=== PATIENT | female | born 1955 | race African-American/Black ===

== ENCOUNTER 2025-10-06 10:29 | Outpatient (REF) | payer MEDICAID, SELFPAY ==
--- OUTSIDE RECORDS SUMMARY | 2025-10-06 09:15 | XMS_ITS | Encounter Summary ---
Author Organization [employer] [facility] Address [address] [place] [address] [address] [address] Care Team Providers Care Management Supervisor Name Role Phone Bhanu Reeder Primary Care Provider [phone] Reason for Referral * Imaging (Routine) - Authorized Specialty Diagnoses / Procedures Referred By Russel garcia Referred To Contact Radiology Diagnoses Cancer screening Procedures BI Mammogram Screening Tomosynthesis Bilateral Bhanu Reeder FNP [address] [place] [address] Phone: tel: fax: [address] [address] Phone: tel: fax: Referral ID Status Reason Start Date Expiration Date V isits Requested Visits Authorized [id number] Authorized 10/06/2025 10/06/2026 1 1 * Endoscopy (Routine) - Pending Review Specialty Diagnoses / Procedures Referred By Russel t Referred To Contact Diagnoses Cancer screening Procedures Colonoscopy Screening Bhanu Reeder FNP [address] [place] [address] Phone: tel: fax: Referral ID Status Reason Start Date Expiration Date V isits Requested Visits Authorized [id number] Pending Review 10/06/2025 10/06/2026 1 1 * Consultation (Routine) - Authorized Specialty Diagnoses / Procedures Referred By Russel t Referred To Contact Dental Lute Packer Or Applier / Dentistry Diagnoses Encounter for medical examination to establish care Bhanu Reeder FNP [address] [place] [address] Phone: tel: fax: Referral ID Status Reason Start Date Expiration Date Visits Requested Visits Authorized [id number] Authorized Consult and Treat 10/06/2025 10/06/2026 1 1 * Consultation (Routine) - Pending Review Specialty Diagnoses / Procedures Referred By Russel garcia Referred To Contact Optometry Diagnoses Primary hypertension Bhanu Reeder FNP [address] [place] [address] Phone: tel: fax: Referral ID Status Reason Start Date Expiration Date Visits Requested Visits Authorized [id number] Pending Review Specialty Services Required 10/06/2026 1 1 Encounter Details Date Type Department Care Team (Late st Contact Info) Description 10/06/2025 9:15 AM EST Office Visit [facility] MEDICINE [address] [place] [address] Bhanu Reeder FNP [address] [place] [address] Encounter for medical examination to establish care (Primary Dx); Muscular pain; Gastroesophageal reflux disease without esophagitis; Primary hypertension; Encounter for screening examination for sexually transmitted disease; Cancer screening Social History Tobacco Use Types Packs/Day Years Used Date Smoking Tobacco: Never Passive Smoke Exposure: Never Smokeless Tobacco: Never Tobacco Cessation:Counseling Given: Not Answered Alcohol Answer Date Recorded How often do you have a drink containing alcohol ? 0 10/06/2025 How many drinks containing a lcohol do you have on a typical day when you are drinking? 0 10/06/2025 How often do you have six or more drinks on one occasion? 0 10/06/2025 Depression Answer Date Recorded Patient Health Questionnaire-9 Score 1 10/06/2025 Patient Health Questionnaire-9 Score 1 10/06/2025 Last PHQ-9: Questionnaire Data Not on file 1 12/06/2024 Housing Stability Answer Date Recorded What is your housing situation today? I have jennifer sing 10/06/[address] you li ve. Do you have problems with any of the following? None of the above 10/06/2025 Food Insecurity Answer Date Recorded Within the past 12 months, y ou worried that your food would run out before you got money to buy more: Sometimes True 2024 Within the past 12 months,th e food you bought just didn't last and you didn't have enough money to get more: Never True 10/06/2025 Transportation Answer Date Recorded In the past 12 months, has l ack of transportation kept you from medical appts, meetings, work or from getting things needed for daily living? No 10/06/2025 Utilities Answer Date Recorded In the past 12 months, has t he electric, gas, oil or water company threatened to shut off services in your home? No 10/06/2025 Depression Answer Date Recorded Patient Health Questionnaire-2 Score 0 10/06/2025 Internet Access Answer Date Recorded Internet Access Q1 No 10/06/2025 Internet Access Q2 I do not want or need it 09/12 Comments Unknown Sex and Gender Information Value Date Recorded Sex Assigned at Female 09/23/2025 9:45 AM EST Legal Sex Female 11:41 AM EDT Gender Identity Female 09/23/2025 9:45 AM EST Sexual Orientation Straight 09/23/2025 9: 45 AM EST documented as of this encounter Last Filed Vital Signs Vital Sign Reading Time Taken Comments Blood Pressure 160/92 10/06/2025 9:32 AM EST Pulse 96 10/06/2025 9:32 AM EST Temperature 36.4 C (97.6 F) 10/06/2025 9:32 AM EST Respiratory Rate 25 10/06/2025 9:32 AM EST Oxygen Saturation 98% 10/06/2025 9:32 AM EST Inhaled Oxygen Concentration - - Weight 88.5 kg (195 lb 3.2 oz) 10/06/2025 9:32 A M EST Height 173 cm (5' 8.11 ) 10/06/2025 9:32 AM EST Body Mass Index 29.58 10/06/2025 9:32 AM EST documented in this encounter Functional Status * Over the past 2 weeks, how often have you been bothered by any of the following problems? Question Answer Date of Assessment Author Patient Health Questionnaire -2 Score 0 10/06/2025 10:40 AM Samara Lucero MA * Little interest or pleasure in doing things Answer Date of Assessment Author Not at all 10/06/2025 10:40 AM Samara Lucero MA * Feeling down, depressed, or hopeless Answer Date of Assessment Author Not at all 10/06/2025 10:40 AM Samara Lucero MA * Trouble falling or staying asleep, or sleeping too much Answer Date of Assessment Author Several days 10/06/2025 10:40 AM Samara Lucero MA * Feeling tired or having little energy Answer Date of Assessment Author Not at all 10/06/2025 10:40 AM Samara Lucero MA * Poor appetite or overeating Answer Date of Assessment Author Not at all 10/06/2025 10:40 AM Samara Lucero MA * Feeling bad about yourself - or that you are a failure or have let yourself or your family down Answer Date of Assessment Author Not at all 10/06/2025 10:40 AM Samara Lucero MA * Trouble concentrating on things, such as reading the newspaper or watching television Answer Date of Assessment Author Not at all 10/06/2025 10:40 AM Samara Lucero MA * Moving or speaking so slowly that other people could have noticed? Or the opposite - being so fidgety or restless that you have been moving around a lot more than usual. Answer Date of Assessment Author Not at all 10/06/2025 10:40 AM Samara Lucero MA * Thoughts that you would be better off or hurting yourself in some way Answer Date of Assessment Author Not at all 10/06/2025 10:40 AM Samara Lucero MA * Patient Health Questionnaire-9 Score Answer Date of Assessment Author 1 10/06/2025 10:40 AM Samara Lucero MA * Over the last 2 weeks, how often have you been bothered by any of the following problems? Question Answer Date of Assessment Author Feeling nervous, anxious, or on edge 0 10/06/2025 10:40 AM Samara Lucero MA Not being able to stop or co ntrol worrying 1 10/06/2025 10:40 AM Samara Lucero MA Worrying too much about diff erent things 0 10/06/2025 10:40 AM Samara Lucero MA Trouble relaxing 0 10/06/2025 10:40 AM Samara Lucero MA Being so restless that it is hard to sit still 0 10/06/2025 10:40 AM Samara Lucero MA Becoming easily annoyed or irritable 0 10/06/2025 10:40 AM Samara Lucero MA Feeling afraid as if somethi ng awful might happen 1 10/06/2025 10:40 AM Samara Lucero MA FELICE-7 Total Score 2 10/06/2025 10:40 AM Samara Lucero MA * How difficult have these problems made it for you to do your work, take care of things at home, or get along with other people? Answer Date of Assessment Author Not difficult at all 10/06/2025 10:40 AM Samara Gomez MA documented as of this encounter Miscellaneous Notes * Assessment & Plan Note - KEN Snider - 10/06/2025 9:15 AM EST Associated Problem(s): Gastroesophageal reflux disease without esophagitis Recommended waiting to lie down for at least 30 minutes after meals. Will address this at next visit. * Assessment & Plan Note - KEN Snider - 10/06/2025 9:15 AM EST Associated Problem(s): Primary hypertension Prescribed Norvasc 5 mg 1 x day and BP kit. Orders: Referral to Optometry; Future documented in this encounter Plan of Treatment Upcoming Encounters Date Type Department Care Team (Late st Contact Info) Description 10/20/2025 9:45 AM EST Office Visit [facility] MEDICINE [address] [place] [address] Bhanu Reeder FNP [address] [place] [address] Scheduled Orders Name Type Priority Associated Diagnoses Orde r Schedule CBC auto differential Lab Routine Encounter for medical examination to establish care Expected: 10/06/2025 (Approximate), Expires: 10/06/2026 Comprehensive Metabolic Panel Lab Routine Encounter for medical examination to establish care Expected: 10/06/2025 (Approximate), Expires: 10/06/2026 Lipid Panel, Standard Lab Routine Encounter for medical examination to establish care Expected: 10/06/2025 (Approximate), Expires: 10/06/2026 HIV-1/2 Antigen and Antibodies, Fourth Generation, with Reflexes Lab Routine Encounter for screening examination for sexually transmitted disease Expected: 10/06/2025 (Approximate), Expires: 10/06/2026 Syphilis Screen Lab Routine Encounter for screening examination for sexually transmitted disease Expected: 10/06/2025, Expires: 10/06/2026 Colonoscopy Screening Endoscopy Routine Cancer screening Expected: 10/06/2025, Expires: 04/05/2026 BI Mammogram Screening Tomosynthesis Bilateral Imaging Routine Cancer screening Expected: 10/06/2025, Expires: 12/06/2026 Scheduled Referrals Name Type Priority Associated Diagnoses Orde r Schedule Referral to Optometry Outpatient Referral Routine Primary hypertension Expected: 10/06/2025 (Approximate), Expires: 10/06/2026 Referral to [facility] Dental Adult Outpatient Referral Routine Encounter for medical examination to establish care Expected: 10/06/2025 (Approximate), Expires: 10/06/2026 documented as of this encounter Procedures Procedure Name Priority Date/Time Associated Diagnosis Comments POCT GLYCATED HEMOGLOBIN, TOTAL Routine 10/06/2025 10:32 AM EST Encounter for medical examination to establish care POCT GLUCOSE Routine 10/06/2025 10:31 AM EST Encounter for medical examination to establish care documented in this encounter Results * (ABNORMAL) POCT Hgb A1c (10/06/2025 10:32 AM EST) Hemoglobin A1C 6.1(A) 4.0 - 5.7 % QC Media Lot # [id number] Lot# Expiration Date [id number] Blood 10/06/2025 10:3 2 AM EST us Bhanu ROGERS POINT OF CARE TEST ENTER/EDIT ORDERABLES Final Result * POCT Glucose (10/06/2025 10:31 AM EST) Glucose Blood, POC 114 60 - 200 mg/dL Comment:random QC Media Lot # [id number] Lot# Expiration Date [id number] Blood Capillary blood specimen / Unknown 10/06/2025 10:31 AM EST Bhanu ROGERS POINT OF CARE TEST ENTER/EDIT ORDERABLES Final Result documented in this encounter Visit Diagnoses Diagnosis Encounter for medical examination to establish care- Primary Muscular pain Unspecified myalgia and myositis Gastroesophageal reflux disease without esophagitis Esophageal reflux Primary hypertension Unspecified essential hypertension Encounter for screening examination for sexually transmitted disease Cancer screening Screening for unspecified malignant neoplasm documented in this encounter Additional Health Concerns Assessment Noted Time PHQ-9 Depression Total Score: 1 10/06/20 10:40 AM EST documented as of this encounter Care Teams Management Supervisor Relationship Specialty Start Date End Date Bhanu Reeder FNP [address] [place] [address] PCP - General Family Medicine 10/06/25 documented as of this encounter
--- OUTSIDE RECORDS SUMMARY | 2025-10-06 12:37 | XMS_ITS | Clinical Summary ---
Author Organization [employer] Address [address] [facility] [address] [place] [address] Care Team Providers Care Hand Molder Meat Name Role Phone Bhanu Reeder GROUND SERVICES INSTRUCTOR Primary Care Provider [phone] Allergies No known active allergies Medications naproxen (Naprosyn) 500 MG tablet Take 1 tablet (500 mg) by mouth 2 times daily. 60 tablet 10/06/20 25 025 Active Diclofenac Sodium 1 % gel Use thin layer on areas of pain, 2 x / day. Wash hands after applicatio n. 120 g 1 10/06/20 25 Active amLODIPine (Norvasc) 5 MG tablet Take 1 tablet (5 mg) by mouth Once per day. 30 tablet 11 10/06/20 25 026 Active Blood Pressure kitIndications:P rimary hypertension 1 each Once per day. 1 kit 10/06/20 25 Active Blood Pressure kit 1 each Once per day. 1 kit 10/06/20 25 025 Discontinued(Du plicate order (will not trigger notification to Pharmacy)) Active Problems Problem Noted Date Diagnosed Date Gastroesophageal reflux disease without esophagi tis 08/25/2023 Assessment & Plan (10/06/2025 10:33 AM EST): Recommended waiting to lie down for at least 30 minutes after meals. Will address this at next visit. Primary hypertension 08/25/2023 Assessment & Plan (10/06/2025 10:33 AM EST): Prescribed Norvasc 5 mg 1 x day and BP kit. Orders: Referral to Optometry; Future Encounters Date Type Department Care Team Description 10/06/2025 9:15 AM EST Office Visit [facility] MEDICINE [address] [place] [address] Bhanu Reeder FNP Encounter for medical examination to establish care (Primary Dx); Muscular pain; Gastroesophageal reflux disease without esophagitis; Primary hypertension; Encounter for screening examination for sexually transmitted disease; Cancer screening 10/06/2025 Travel 10/05/2025 Telephone [facility] MEDICINE [address] [place], [place] [phone] Bhanu Reeder FNP Chart Prep from Last 3 Months Social History Tobacco Use Types Packs/Day Years [...] your housing situation today? I have jennifer roth 10/06/[address] you li [...] Orientation Straight 09/23/2025 9: 45 AM EST Last Filed Vital Signs Vital Sign Reading [...] Mass Index 29.58 10/06/2025 9:32 AM EST Plan of Treatment Upcoming Encounters Date Type Department Care Team (Late st Contact Info) Description 10/20/2025 9:45 AM EST Office Visit [facility] MEDICINE [address] [place] [address] Bhanu Reeder FNP [address] [place] [address] Health Maintenance Due Date Last Done Comments CT Colonography 1953 Colonoscopy 1953 FIT DNA/Cologuard 1953 FOBT 1953 Lipid Panel 1953 Sigmoidoscopy 1953 Hepatitis C Screening 1971 DTaP/Tdap/Td Vaccines (1 - Tdap) 1972 Mammogram 1993 Pneumococcal Vaccine: 50+ Years (1 of 1 - PCV) 2003 Zoster Vaccines (1 of 2) 2003 Colorectal Cancer Screening 08/26/2024 FIT 08/26/2024 08/26/2023 COVID-19 Vaccine (1 - 2024-2 6 season) 2025 Influenza Vaccine (#1) 2025 Alcohol/Substance Use Screening 10/06/2026 10/06/2025 Depression Screening 10/06/2026 10/06/2025, 10/06/2025 Diabetes: Hemoglobin A1C 10/06/2026 10/06/2025 SDOH Screening 10/06/2026 10/06/2025 Tobacco Screening 10/06/2026 10/06/2025 RSV Patients and Patients Aged 60 years or older (1 - 1-dose 75+ series) 2028 HIB Vaccines Aged Out No longer eligi ble based on patient's age to complete this topic HPV Vaccines Aged Out No longer eligi ble based on patient's age to complete this topic Hepatitis A Vaccines Aged Out No long er eligible based on patient's age to complete this topic Hepatitis B Vaccines Aged Out No long er eligible based on patient's age to complete this topic IPV Vaccines Aged Out No longer eligi ble based on patient's age to complete this topic Meningococcal B Vaccine Aged Out No l onger eligible based on patient's age to complete this topic Meningococcal Vaccine Aged Out No kirk heidi eligible based on patient's age to complete this topic RSV under 20 months Aged Out No longe r eligible based on patient's age to complete this topic Rotavirus Vaccines Aged Out No longer eligible based on patient's age to complete this topic Procedures Procedure Name Priority Date/Time Associated Diagnosis Comments POCT GLYCATED HEMOGLOBIN, TOTAL Routine 10/06/2025 10:32 AM EST Encounter for medical examination to establish care POCT GLUCOSE Routine 10/06/2025 10:31 AM EST Encounter for medical examination to establish care from Last 3 Months Results * (ABNORMAL) POCT Hgb A1c (10/06/2025 10:32 AM EST) Hemoglobin A1C 6.1(A) 4.0 - 5.7 % QC Media Lot # [id number] Lot# Expiration Date [id number] Blood 10/06/2025 10:3 2 AM EST Bhanu Reeder GROUND SERVICES INSTRUCTOR POINT OF CARE TEST ENTER/EDIT ORDERABLES Final Result * POCT Glucose (10/06/2025 10:31 AM EST) Glucose Blood, POC 114 60 - 200 mg/dL Comment:random QC Media Lot # [id number] Lot# Expiration Date [id number] Blood Capillary blood specimen / Unknown 10/06/2025 10:31 AM EST Bhanu ROGERS POINT OF CARE TEST ENTER/EDIT ORDERABLES Final Result from Last 3 Months Insurance [facility] Care Teams Hand Molder Meat Relationship Specialty Start Date End Date Bhanu Reeder FNP [address] [place] [id number] PCP - General Family Medicine 10/06/25
--- OUTSIDE RECORDS SUMMARY | 2025-10-06 12:37 | XMS_ITS | Encounter Summary ---
Author Organization [employer] Address [address] [facility] [address] [place] [address] Care Team Providers Care Coremaker Experimental Name Role Phone Bhanu Reeder KEN Primary Care Provider [phone] Encounter Details Date Type Department Care Team (Latest Contact Info) Description 10/06/2025 Travel Social History Tobacco Use Types Packs/Day Years Used Date Smoking Tobacco: Never Passive Smoke Exposure: Never Smokeless Tobacco: Never Alcohol Answer Date Recorded How often do [...] AM EST documented as of this encounter Functional Status * Over the [...] Gomez MA documented as of this encounter Plan of Treatment Upcoming Encounters Date Type Department Care Team (Late st Contact Info) Description 10/20/2025 9:45 AM EST Office Visit [facility] MEDICINE [address] [place] [address] Bhanu Reeder FNP [address] [place] [address] documented as of this encounter Visit Diagnoses Not on filedocumented in this encounter Additional Health Concerns Assessment Noted Time PHQ-9 Depression Total Score: 1 10/06/20 25 10:40 AM EST documented as of this encounter Care Teams Coremaker Experimental Relationship Specialty Start Date End Date Bhanu Reeder FNP [address] [place] [address] PCP - General Family Medicine 10/06/25 documented as of this encounter
--- OUTSIDE RECORDS SUMMARY | 2025-10-06 12:37 | XMS_ITS | Encounter Summary ---
Author Organization [employer] Address [address] [place] [address] [address] [place] [address] Care Team Providers Care Mobile Solutions Architect Name Role Phone Unavailable Primary Care Provider Unavailabl e Reason for Visit * Reason Onset Date Comments Chart Prep 10/05/2025 Encounter Details Date Type Department Care Team ([facility] st Contact Info) Description 10/05/2025 Telephone [facility] MEDICINE [address] [place], [place] [phone] Bhanu Reeder FNP [address] [place], [place] [phone] Chart Prep Social History Tobacco Use Types Packs/Day Years Used Date Smoking Tobacco: Never Assessed Alcohol Answer Date Recorded How often do [...] AM EST documented as of this encounter Miscellaneous Notes * Telephone Encounter - Samara Gutiérrez MA - 10/05/2025 8:16 AM EST Chart Prep Labs: not applicable Images: not applicable Referrals: not applicable Vaccines due: Covid, Flu, PCV20, and Zoster Screenings: colonoscopy and mammogramAlcohol/Substance Use Screening Overdue care gaps: SBIRT, SDOH, PHQ-9, FELICE-7, Oral health screening, and Tobacco documented in this encounter Plan of Treatment Upcoming Encounters Date Type Department Care Team (Late st Contact Info) Description 10/20/2025 9:45 AM EST Office Visit [facility] MEDICINE [address] [place] [address] Bhanu Reeder FNP [address] [place] [address] documented as of this encounter Visit Diagnoses Not on filedocumented in this encounter
[2025-10-06 13:08] LABS: MANUAL DIFF FLAG NO
[2025-10-06 13:19] LABS: Hematocrit 42.1 % (37.0-47.0); Hemoglobin 13.8 g/dl (12.0-16.0); Imm Gran Abs Auto 0.02 X10*3/uL (0.00-0.03); Imm Gran Pct Auto 0.3 % (0.0-0.4); Lymphocytes Absolute Auto 2.8 X10*3/uL (1.2-4.9); Mean Corpuscular HGB Conc 32.8 g/dl (31.0-35.0); Mean Corpuscular Hemoglobin 26.1 pg (27.0-33.0); Mean Corpuscular Volume 79.6 fL (80.0-98.0); NRBC Abs Auto 0.000 X10*3/uL (0.0-0.012); NRBC Pct Auto 0.0 /100WBC (0.0-0.2); Platelet Count 298 X10*3/uL (160-400); Red Blood Count 5.29 X10*6/uL (4.20-5.50); White Blood Count 6.1 X10*3/uL (4.8-10.8)
[2025-10-06 13:40] LABS: Alanine Aminotransferase 37 U/L (0-31); Albumin Level 4.8 g/dL (3.5-5.0); Alkaline Phosphatase 53 U/L (39-117); Anion Gap 14 (12-20); Aspartate Amino Transferase 36 U/L (5-31); Blood Urea Nitrogen 10 mg/dL (9-16); Calcium 9.7 mg/dL (8.4-10.2); Carbon Dioxide 24 mmol/L (22-29); Chloride 109 mmol/L (96-108); Cholesterol 239 mg/dL (<200); Estimated Glomerular Filt Rate > 60; HDL Cholesterol 35 mg/dL (>40); Potassium 4.0 mmol/L (3.3-5.1); Sodium 143 mmol/L (135-145); Total Protein 8.6 g/dL (6.5-8.0); Triglycerides 226 mg/dL (<150)
[2025-10-07 04:42] LABS: Syphilis Screen Nonreactive (Nonreactive)
[2025-10-07 05:01] LABS: HIV Num 1 0.05 S/CO (0.00-0.99)
== END 2025-10-06 10:30 | disposition home or self-care (01) ==
LOC: HO.HHCL 10:29
DX: Z00.00 Encounter for general adult medical examination without abnormal findings (principal); Z11.3 Encounter for screening for infections with a predominantly sexual mode of transmission; Z11.4 Encounter for screening for human immunodeficiency virus [HIV]
CPT/HCPCS: 36415; 80053; 80061; 85025; 86780; 87389

== ENCOUNTER 2025-10-20 10:49 | Outpatient (REF) | payer MEDICAID, SELFPAY ==
[2025-10-20 23:31] LABS: CT PCR Urine NOT DETECTED (Not Detect.); NG PCR Urine NOT DETECTED (Not Detect.)
== END 2025-10-20 10:50 | disposition home or self-care (01) ==
LOC: HO.HHCL 10:49
DX: Z20.2 Contact with and (suspected) exposure to infections with a predominantly sexual mode of transmission (principal)
CPT/HCPCS: 87491; 87591

== ENCOUNTER 2025-11-03 11:43 | Outpatient (REF) | payer MEDICAID, SELFPAY ==
--- OUTSIDE RECORDS SUMMARY | 2025-11-03 10:15 | XMS_ITS | Encounter Summary ---
Author Organization [employer] Address [address] [place] [address] [facility] [place] [address] Care Team Providers Care Paranormal Investigator Name Role Phone Bhanu Reeder Primary Care Provider [phone] Reason for Referral * Consultation (Routine) - Pending Review Specialty Diagnoses / Procedures Referred By Russel garcia Referred To Contact Physical Therapy Diagnoses Chronic bilateral low back pain without sciatica Bhanu Redeer FNP [address] [place] [address] Phone: tel: fax: Referral ID Status Reason Start Date Expiration Date Visits Requested Visits Authorized [id number] Pending Review Specialty Services Required 11/03/2026 1 1 Reason for Visit * Reason Comments Follow-up Encounter Details Date Type Department Care Team (Late st Contact Info) Description 11/03/2025 10:15 AM EST Office Visit [facility] [address] [place] [address] Bhanu Reeder FNP [address] [place] [address] Muscular pain (Primary Dx); Other constipation; Chronic bilateral low back pain without sciatica; Primary hypertension; Type 2 diabetes mellitus without complication, with long-term current use of insulin (HCC); Microcytic anemia Social History Tobacco Use Types Packs/Day Years [...] Sign Reading Time Taken Comments Blood Pressure 140/82 11/03/2025 10:29 AM EST Pulse 102 11/03/2025 10:29 AM EST Temperature 36.7 C (98.1 F) 11/03/2025 10:29 AM EST Respiratory Rate 25 11/03/2025 10:29 AM EST Oxygen Saturation 99% 11/03/2025 10:29 AM EST Inhaled Oxygen Concentration - - Weight 88.2 kg (194 lb 6.4 oz) 11/03/2025 10:29 AM EST Height 172.7 cm (5' 8 ) 11/03/2025 10:29 AM EST Body Mass Index 29.56 11/03/2025 10:29 AM EST documented in this encounter Plan of Treatment Scheduled Orders Name Type Priority Associated Diagnoses Orde r Schedule Iron And Total Iron Binding Capacity Lab Routine Microcytic anemia Expected: 11/03/2025, Expires: 11/03/2026 Fecal Globin By Immunochemistry Lab Routine Microcytic anemia Expected: 11/03/2025 (Approximate), Expires: 11/03/2026 Scheduled Referrals Name Type Priority Associated Diagnoses Orde r Schedule Referral to Physical Therapy Outpatient Referral Routine Chronic bilateral low back pain without sciatica Expected: 11/03/2025 (Approximate), Expires: 11/03/2026 documented as of this encounter Goals Goal Patient Goal Type Associated Problems Recent Progress Patient-Stated? Author Help patients manage their type 2 diabetes Care Plan Help patients manage their type 2 diabetes No ReederBhanu, CASER SHOE PARTS Weekly blood pressure task Care Plan Weekly blood pressure task No ReederDerrekic, [employer]S Help patients manage their type 2 diabetes Care Plan Help patients manage their type 2 diabetes No Reeder Bhanu, CASER SHOE [employer]S Patient has chronic kidney disease Care Plan Patient has chronic kidney disease No Reeder, Bhanu, [employer]ER SHOE [employer]S Weekly blood pressure task Care Plan Weekly blood pressure task No Reeder Bhanu, CASER SH[employer]S Patient has chronic kidney disease Care Plan Patient has chronic kidney disease No ReederBhanu, CASER SH[employer]S Weekly blood pressure task Care Plan Weekly blood pressure task No Reeder Bhanu, CASER [employer]S Weekly blood pressure task Care Plan Weekly blood pressure task No Reeder, Bhanu, CASER SHOE [employer]S Patient has chronic kidney disease Care Plan Patient has chronic kidney disease No Reeder, Bhanu, [employer]ER [employer]S Patient has chronic kidney disease Care Plan Patient has chronic kidney disease No Reeder Bhanu, [employer]S documented as of this encounter Visit Diagnoses Diagnosis Muscular pain- Primary Unspecified myalgia and myositis Other constipation Chronic bilateral low back pain without sciatica Primary hypertension Unspecified essential hypertension Type 2 diabetes mellitus without complication, with long-term current use of insulin (HCC) Microcytic anemia Unspecified iron deficiency anemia documented in this encounter Additional Health Concerns Active Problems Noted Date Diagnosed Date Help patients manage their type 2 diabetes 10/20 Weekly blood pressure task 10/20/2025 Help patients manage their type 2 diabetes 10/20 Patient has chronic kidney disease 10/20/2025 Weekly blood pressure task 10/20/2025 Patient has chronic kidney disease 10/20/2025 Weekly blood pressure task 11/03/2025 Weekly blood pressure task 11/03/2025 Patient has chronic kidney disease 11/03/2025 Patient has chronic kidney disease 11/03/2025 Assessment Noted Time PHQ-9 Depression Total Score: 1 10/06/20 10:40 AM EST documented as of this encounter Care Teams Paranormal Investigator Relationship Specialty Start Date End Date Bhanu Reeder FNP [address] [place] [id number] PCP - General Family Medicine 10/06/25 documented as of this encounter
--- OUTSIDE RECORDS SUMMARY | 2025-11-03 11:47 | XMS_ITS | Encounter Summary ---
Author Organization [employer] Address [address] [facility] 7[address] [place] [address] Care Team Providers Care Client Support Associate Name Role Phone VarinderBhanu KEN Primary Care Provider [phone] Encounter Details Date Type Department Care Team (Latest Contact Info) Description 11/03/2025 Travel Social History Tobacco Use Types Packs/Day [...] AM EST documented as of this encounter Plan of Treatment Not on file documented as of this encounter Goals Goal Patient Goal Type Associated Problems Recent Progress Patient-Stated? Author Help patients manage their type 2 diabetes Care Plan Help patients manage their type 2 diabetes No Bhanu Reeder FNP Weekly blood pressure task Care Plan Weekly blood pressure task No Bhanu Reeder FNP Help patients manage their type 2 diabetes Care Plan Help patients manage their type 2 diabetes No ReederBhanu, TAXI DRIVER SUPERVISOR Patient has chronic kidney disease Care Plan Patient has chronic kidney disease No Bhanu Reeder TAXI DRIVER SUPERVISOR Weekly blood pressure task Care Plan Weekly blood pressure task No Bhanu Reeder TAXI DRIVER SUPERVISOR Patient has chronic kidney disease Care Plan Patient has chronic kidney disease No Bhanu Reeder, TAXI DRIVER SUPERVISOR Weekly blood pressure task Care Plan Weekly blood pressure task No Bhanu Reeder TAXI DRIVER SUPERVISOR Weekly blood pressure task Care Plan Weekly blood pressure task No Bhanu Reeder TAXI DRIVER SUPERVISOR Patient has chronic kidney disease Care Plan Patient has chronic kidney disease No Bhanu Reeder, TAXI DRIVER SUPERVISOR Patient has chronic kidney disease Care Plan Patient has chronic kidney disease No Bhanu Reeder TAXI DRIVER SUPERVISOR documented as of this encounter Visit Diagnoses Not on filedocumented in this encounter Additional Health Concerns Active [...] documented as of this encounter Care Teams Client Support Associate Relationship Specialty Start Date End Date Bhanu Reeder FNP [address] [place] [id number] PCP - General Family Medicine 10/06/25 documented as of this encounter
--- OUTSIDE RECORDS SUMMARY | 2025-11-03 11:47 | XMS_ITS | Encounter Summary ---
Author Organization [employer] Address [address] [place] [address] 7 [place] [address] Care Team Providers Care Marshmallow Runner Name Role Phone Bhanu Reeder Primary Care Provider [phone] Reason for Visit * Reason Onset Date Comments chartprep 11/02/2025 Encounter Details Date Type Department Care Team ([facility] st Contact Info) Description 11/02/2025 Telephone [facility] [address] [place], [place] [phone] Bhanu Reeder FNP [address] [place] [address] chartprep Social History Tobacco Use Types Packs/Day Years [...] got money to buy more: Sometimes True 11/26/ 2025 Within the past 12 months,th e food [...] encounter Miscellaneous Notes * Telephone Encounter - Hanane Eaton [place] - 11/02/2025 1:58 PM EST ..Chart Prep Labs: done Images: not done Vaccines due: Covid Due, Tdap Due, PCV20 Due, and Flu Due Referrals: Not Applicable Screenings: Colonoscopy and Mammogram Overdue care gaps: None documented in this encounter Plan of Treatment Not on file documented as of this encounter Goals Goal Patient Goal Type Associated Problems Recent Progress Patient-Stated? Author Help patients manage their type 2 diabetes Care Plan Help patients manage their type 2 diabetes No Bhanu Reeder, PAINTING CONTRACTOR Weekly blood pressure task Care Plan Weekly blood pressure task No Bhanu Reeder PAINTING CONTRACTOR Help patients manage their type 2 diabetes Care Plan Help patients manage their type 2 diabetes No Bhanu Reeder, PAINTING CONTRACTOR Patient has chronic kidney disease Care Plan Patient has chronic kidney disease No Bhanu Reeder, PAINTING CONTRACTOR Weekly blood pressure task Care Plan Weekly blood pressure task No Bhanu Reeder, PAINTING CONTRACTOR Patient has chronic kidney disease Care Plan Patient has chronic kidney disease No Bhanu Reeder FNP documented as of this encounter Visit Diagnoses Not on filedocumented in this encounter Additional Health Concerns Active Problems Noted Date Diagnosed Date Help patients manage their type 2 diabetes 10/20 Weekly blood pressure task 10/20/2025 Help patients manage their type 2 diabetes 10/20 Patient has chronic kidney disease 10/20/2025 Weekly blood pressure task 10/20/2025 Patient has chronic kidney disease 10/20/2025 Assessment Noted Time PHQ-9 Depression Total Score: 1 10/06/20 10:40 AM EST documented as of this encounter Care Teams Marshmallow Runner Relationship Specialty Start Date End Date Bhanu Reeder FNP [address] [place] [id number] PCP - General Family Medicine 10/06/25 documented as of this encounter
--- OUTSIDE RECORDS SUMMARY | 2025-11-03 11:47 | XMS_ITS | Clinical Summary ---
Author Organization [employer] Address [address] [facility] [address] [facility] [address] [place] [address] Care Team Providers Care Fingerprint Technician Name Role Phone ReederBhanu KEN Primary Care Provider [phone] Allergies No known active allergies Medications naproxen (Naprosyn) 500 MG tablet Take 1 tablet (500 mg) by mouth 2 times daily. 60 tablet 10/06/20 25 025 Active Diclofenac Sodium 1 % gel Use thin layer on areas of pain, 2 x / day. Wash hands after applicati on. 120 g 1 10/06/20 25 Active Blood Pressure kitIndications:Gerri navdeep hypertension 1 each Once per day. 1 kit 10/06/20 25 Active amLODIPine (Norvasc) 10 MG tablet Take 1 tablet (10 mg) by mouth Once per day. 30 tablet 11 10/20/20 25 026 Active rosuvastatin (Crestor) 10 MG tabletIndications: Mixed hyperlipidemia Take 1 tablet (10 mg) by mouth Once per day. 30 tablet 10/20/20 25 026 Active Omeprazole 20 MG tablet delayed-releaseInd ications:Gastroeso phageal reflux disease without esophagitis Take 1 tablet (20 mg) by mouth Once per day. 60 tablet 10/20/20 25 026 Active psyllium (Metamucil Smooth Texture) 58.6 % powderIndications: Other constipation Take 5.12 g (3 g of fiber) by mouth 2 times daily. 283 g 11 11/03/20 25 026 Active Blood Pressure kit 1 each Once per day. 1 kit 10/06/20 25 025 Discontinued(Du plicate order (will not trigger notification to Pharmacy)) amLODIPine (Norvasc) 5 MG tablet Take 1 tablet (5 mg) by mouth Once per day. 30 tablet 11 10/06/20 025 Discontinued acetaminophen (Tylenol 8 Hour) 650 MG ER tablet Take 1 tablet (650 mg) by mouth every 8 (eight) hours if needed for mild pain for up to 10 days. Do not crush, chew, or split. 30 tablet 10/20/20 025 psyllium (Metamucil Smooth Texture) 58.6 % powderIndications: Other constipation Take 5.12 g (3 g of fiber) by mouth 2 times daily. 283 g 10/20/20 025 Discontinued(Re order (will not trigger notification to Pharmacy)) Active Problems Problem Noted Date Diagnosed Date Gastroesophageal reflux disease without esophagi tis 08/25/2023 Assessment & Plan (10/20/2025 12:14 PM EST): - GERD with symptoms of burning and reflux. - Prescribed omeprazole to be taken 30-60 minutes before breakfast daily for 8 weeks. Advised to wait 30 minutes after eating before lying down. Follow-up in 2 weeks to evaluate response. Orders: Omeprazole 20 MG tablet delayed-release; Take 1 tablet (20 mg) by mouth Once per day. Assessment & Plan (10/06/2025 12:37 PM EST): Recommended waiting to lie down for at least 30 minutes after meals. Will address this at next visit. Primary hypertension 08/25/2023 Assessment & Plan (10/20/2025 12:14 PM EST): - Hypertension managed with amlodipine; blood pressure improved but dose adjustment required due to periods of elevated readings. - Increased amlodipine dose from 5 mg to 10 mg nightly. Advised to monitor for dizziness or adverse effects and report immediately if they occur. Continue home blood pressure monitoring. Follow-up scheduled in 2 weeks to reassess blood pressure and headaches. - Risks and side effects: Discussed risk of dizziness with dose increase; instructed to stop medication and notify provider if significant side effects occur. Assessment & Plan (10/06/2025 12:37 PM EST): Prescribed Norvasc 5 mg 1 x day and BP kit. Orders: Referral to Optometry; Future Blood Pressure kit; 1 each Once per day. Encounters Date Type Department Care Team Description 11/03/2025 10:15 AM EST Office Visit [address] [address] Bhanu Reeder FNP Muscular pain (Primary Dx); Other constipation; Chronic bilateral low back pain without sciatica; Primary hypertension; Type 2 diabetes mellitus without complication, with long-term current use of insulin (HCC); Microcytic anemia 11/03/2025 Travel 11/02/[address] [address] Bhanu Reeder FNP chartprep 10/22/[address] [address] Estrellita Spencer RN 10/20/2025 9:45 AM EST Office Visit [address] [address] Bhanu Reeder FNP Primary hypertension (Primary Dx); Type 2 diabetes mellitus without complication, with long-term current use of insulin ([facility]); Encounter for weight management; Encounter for screening examination for sexually transmitted disease; Iron deficiency anemia due to chronic blood loss; Mixed hyperlipidemia; Muscular pain; Other constipation; Gastroesophageal reflux disease without esophagitis; Dietary counseling; Exercise counseling 10/20/2025 Travel 10/19/[address] [address] Bhanu Reeder FNP Chart Prep 10/06/2025 9:15 AM EST Office Visit [address] [address] Bhanu Reeder FNP Encounter for medical examination to establish care (Primary Dx); Muscular pain; Gastroesophageal reflux disease without esophagitis; Primary hypertension; Encounter for screening examination for sexually transmitted disease; Cancer screening 10/06/2025 Results Follow-Up [address] [address] Bhanu Reeder FNP POCT Glucose, POCT Hgb A1c, CBC auto differential, Additional followed-up results: 4 10/06/2025 Travel 10/05/2025 Telephone [facility] [address] [place] [phone] Bhanu Reeder FNP Chart Prep from Last [...] Mass Index 29.56 11/03/2025 10:29 AM EST Plan of Treatment Health Maintenance Due Date Last Done Comments CT Colonography 1953 Colonoscopy 1953 FIT DNA/Cologuard 1953 FOBT 1953 Sigmoidoscopy 1953 Diabetes: Foot Exam 1963 Eye Exam 1963 Hepatitis C Screening 1971 DTaP/Tdap/Td Vaccines (1 - Tdap) 1972 Diabetes: Urine Protein Screening 1972 Pneumococcal Vaccine: 50+ Years (1 of 2 - PCV) 1972 Mammogram 1993 Zoster Vaccines (1 of 2) 2003 Colorectal Cancer Screening 08/26/2024 FIT 08/26/2024 08/26/2023 COVID-19 Vaccine (1 - 2024-2 6 season) 2025 Influenza Vaccine (#1) 2025 Diabetes: Hemoglobin A1C 04/05/2026 025, 08/23/2023 Alcohol/Substance Use Screening 10/06/2026 10/06/2025 Depression Screening 10/06/2026 10/06/2025, 10/06/2025 Lipid Panel 10/06/2026 10/06/2025 SDOH Screening 10/06/2026 10/06/2025 Tobacco Screening 10/20/2026 10/20/2025 RSV Patients and Patients Aged 60 years [...] on patient's age to complete this topic Goals Goal Patient Goal Type Associated Problems Recent Progress Patient-Stated? Author Help patients manage their type 2 diabetes Care Plan Help patients manage their type 2 diabetes No Reeder, Bhanu, AUTOMATIC TELLER MACHINE SERVICER Weekly blood pressure task Care Plan Weekly blood pressure task No Reeder, Bhanu, AUTOMATIC TELLER MACHINE SERVICER Help patients manage their type 2 diabetes Care Plan Help patients manage their type 2 diabetes No Reeder, Bhanu, AUTOMATIC TELLER MACHINE SERVICER Patient has chronic kidney disease Care Plan Patient has chronic kidney disease No Reeder, Bhanu, AUTOMATIC TELLER MACHINE SERVICER Weekly blood pressure task Care Plan Weekly blood pressure task No Reeder, Bhanu, AUTOMATIC TELLER MACHINE SERVICER Patient has chronic kidney disease Care Plan Patient has chronic kidney disease No Reeder, Bhanu, AUTOMATIC TELLER MACHINE SERVICER Weekly blood pressure task Care Plan Weekly blood pressure task No Reeder, Bhanu, AUTOMATIC TELLER MACHINE SERVICER Weekly blood pressure task Care Plan Weekly blood pressure task No Reeder, Bhanu, AUTOMATIC TELLER MACHINE SERVICER Patient has chronic kidney disease Care Plan Patient has chronic kidney disease No Reeder, Bhanu, AUTOMATIC TELLER MACHINE SERVICER Patient has chronic kidney disease Care Plan Patient has chronic kidney disease No Reeder, Bhanu, AUTOMATIC TELLER MACHINE SERVICER Procedures Procedure Name Priority Date/Time Associated Diagnosis Comments CHLAMYDIA/TRICHOMONAS/ NEISSERIA GONORRHOEAE, PCR, URINE Routine 10/20/2025 12:00 AM EST Encounter for screening examination for sexually transmitted disease SYPHILIS SCREEN Routine 10/06/2025 10:43 AM EST Encounter for screening examination for sexually transmitted disease HIV 1/2 ANTIGEN/ANTIBODY, FOURTH GENERATION W/RFL Routine 10/06/2025 10:43 AM EST Encounter for screening examination for sexually transmitted disease LIPID PANEL, STANDARD Routine 10/06/2025 10:43 AM EST Encounter for medical examination to establish care COMPREHENSIVE METABOLIC PANEL Routine 10/06/2025 10:43 AM EST Encounter for medical examination to establish care CBC WITH AUTO DIFFERENTIAL Routine 10/06/2025 10:43 AM EST Encounter for medical examination to establish care POCT GLYCATED HEMOGLOBIN, TOTAL Routine 10/06/2025 10:32 AM EST Encounter for medical examination to establish care POCT GLUCOSE (CPT-17875) Routine 10/06/2025 10:31 AM EST Encounter for medical examination to establish care from Last 3 Months Results * Chlamydia/N. Gonorrhoeae, PCR, Urine (10/20/2025 12:00 AM EST) CT PCR, Urine NOT DETECTED Not Detect. [facility] Comment:A not detected test result does not exclude the possibilityof infection because test results can be affected byimproper specimen collection, concurrent antibiotic therapy,or the number of organisms in the specimen which may bebelow the sensitivity of the test. As with many diagnostictests, results from the Xpert CT/NG assay should beinterpreted in conjunction with other laboratory andclinical data available to the clinician.The Xpert CT/NG assay should not be used for the evaluationof suspected sexual abuse or for other medico-legalindications. Additional testing is recommended in anycircumstance when false positive or false negative resultscould lead to adverse medical, social or psychologicalconsequences. NG PCR, Urine NOT DETECTED Not Detect. [facility] Comment:A not detected test result does not exclude the possibilityof infection because test results can be affected byimproper specimen collection, concurrent antibiotic therapy,or the number of organisms in the specimen which may bebelow the sensitivity of the test. As with many diagnostictests, results from the Xpert CT/NG assay should beinterpreted in conjunction with other laboratory andclinical data available to the clinician.The Xpert CT/NG assay should not be used for the evaluationof suspected sexual abuse or for other medico-legalindications. Additional testing is recommended in anycircumstance when false positive or false negative resultscould lead to adverse medical, social or psychologicalconsequences. Urine (Urine, Random) 10/20/2025 10/20/2025 Bhanu Reeder [facility] URINE ORDERABLES Final Re sult Performing Organization Address [facility]/ZIP Co de Phone Number [facility] [address] [place] [phone] * Syphilis Screen (10/06/2025 10:43 AM EST) Pathologist [facility] Syphilis Screen Nonreactive Nonreactive [facility] Blood 10/06/2025 10:4 3 AM EST 10/06/2025 1:08 PM EST Bhanu Reeder [facility] BLOOD ORDERABLES Final Re sult Performing Organization Address [facility] Co de Phone Number [facility] [address] [place] [phone] * (ABNORMAL) CBC auto differential (10/06/2025 10:43 AM EST) Pathologist [facility] White Blood Count 6.1 4.8 - 10.8 X10*3/uL [facility] Red Blood Count 5.29 4.20 - 5.50 X10*6/uL [facility] Hemoglobin 13.8 12.0 - 16.0 g/dl [facility] Hematocrit 42.1 37.0 - 47.0 % [facility] Mean Corpuscular Volume 79.6(L) 80.0 - 98.0 fL [facility] Mean Corpuscular Hemoglobin 26.1(L) 27.0 - 33.0 pg [facility] Mean Corpuscular HGB Conc 32.8 31.0 - 35.0 g/dl [facility] Red Cell Distribution Width 17.1(H) 11.0 - 16.0 % [facility] Platelet Count 298 160 - 400 X10*3/uL [facility] Mean Platelet Volume 11.8 9.4 - 12.3 fL [facility] Neutrophils Percent Auto 46.5 45 - 73 % [facility] Imm Gran Pct Auto 0.3 0.0 - 0.4 % [facility] Lymphocytes Percent Auto 45.4(H) 20 - 40 % [facility] Monocytes Percent Auto 7.2 2 - 11 % [facility] Eosinophils Percent Auto 0.3 0 - 4 % [facility] Basophils Percent Auto 0.3 0 - 2 % [facility] NRBC Pct Auto 0.0 0.0 - 0.2 /100WBC [facility] Neutrophils Absolute Auto 2.9 2.0 - 8.3 x10*3/uL [facility] Imm Gran Abs Auto 0.02 0.00 - 0.03 X10*3/uL [facility] Lymphocytes Absolute Auto 2.8 1.2 - 4.9 X10*3/uL [facility] Monocytes Absolute Auto 0.4 0.1 - 1.2 X10*3/uL [facility] Eosinophils Absolute Auto 0.0 0.0 - 0.4 X10*3/uL [facility] Basophils Absolute Auto 0.0 0.0 - 0.2 X10*3/uL [facility] NRBC Abs Auto 0.000 0.0 - 0.012 X10*3/uL [facility] Blood Venous blood specimen / Unknown 10/06/2025 10:43 AM EST 10/06/2025 1:04 PM EST Bhanu [facility] LAB BLOOD ORDERABLES Final Re sult [facility] [address] [place] [phone] * HIV-1/2 Antigen and Antibodies, Fourth Generation, with Reflexes (10/06/2025 10:43 AM EST) HIV AB/AG Nonreactive Nonreactive [facility] Comment:HIV-1 p24 Ag and/or HIV-1/HIV-2 Ab not detected.A test result that is nonreactive does not exclude thepossibility of exposure to or infection with HIV-1 and/orHIV-2. Nonreactive results in this assay for individualswith prior exposure to HIV-1 and/or HIV-2 may be due toantigen and antibody levels that are below the limit ofdetection of this assay.The [address] HIV Ag/Ab Combo assay result andsupplemental assay results should be interpreted inconjunction with the patient's clinical presentation,history and other laboratory results. If the results areinconsistent with clinical evidence, additional testing issuggested to confirm the result. Blood Venous blood specimen / Unknown 10/06/2025 10:43 AM EST 10/06/2025 1:08 PM EST us Bhanu Reeder [facility] BLOOD ORDERABLES Final Re sult [facility] [address] [place] [phone] * (ABNORMAL) Lipid Panel, Standard (10/06/2025 10:43 AM EST) Triglycerides 226(H) <150 mg/dL [facility] Comment:Desirable Triglyceri de: less than 150 mg/dLBorderline High Triglyceride 150-199 mg/dLHigh Triglyceride: 200-499 mg/dLVery High Triglyceride: greater than or equal to 5OO mg/dL Cholesterol 239(H) <200 mg/dL [facility] Comment:Desirable Cholestero l: less than 200 mg/dLBorderline High Cholesterol: 200-239 mg/dLHigh Cholesterol: greater than 239 mg/dL LDL Cholesterol Calculated 159(H) <100 mg/dL [facility] Comment:Desirable LDL: less than 100 mg/dLNear Optimal/Above Optimal LDL: 110- 129 mg/dLBorderline High LDL: 130-159 mg/dLHigh LDL: 160-189 mg/dLVery High LDL: greater than or equal to 190 mg/dL HDL Cholesterol 35(L) >40 mg/dL [facility] Comment:Desirable HDL: great er than 40 mg/dL Note: This HDL assay may give artificially low results in patients with liver disease. Blood Venous blood specimen / Unknown 10/06/2025 10:43 AM EST 10/06/2025 1:08 PM EST us Bhanu Reeder AUTOMATIC TELLER MACHINE SERVICER LAB BLOOD ORDERABLES Final Re sult [facility] [address] [place] [phone] * (ABNORMAL) Comprehensive Metabolic Panel (10/06/2025 10:43 AM EST) Sodium 143 135 - 145 mmol/L [facility] Potassium 4.0 3.3 - 5.1 mmol/L [facility] Chloride 109(H) 96 - 108 mmol/L [facility] Carbon Dioxide 24 22 - 29 mmol/L [facility] Anion Gap 14 12 - 20 [facility] Urea Nitrogen (BUN) 10 9 - 16 mg/dL [facility] Creatinine, Serum 0.92 0.5 - 1.4 mg/dL [facility] Estimated Glomerular Filt Rate >60 [facility] Comment:Chronic Kidney Disea se: Estimated GFR < 60 mL/min/[id number] Kidney Disease: Estimated GFR < 15 mL/min/1.73m2 Glucose 91 60 - 115 mg/dL [facility] Calcium 9.7 8.4 - 10.2 mg/dL [facility] Bilirubin, Total 0.6 0.0 - 1.0 mg/dL [facility] Aspartate Amino Transferase 36(H) 5 - 31 U/L [facility] Alanine Aminotransferase 37(H) 0 - 31 U/L [facility] Total Protein 8.6(H) 6.5 - 8.0 g/dL [facility] Albumin Level 4.8 3.5 - 5.0 g/dL [facility] Alkaline Phosphatase 53 39 - 117 U/L [facility] Blood Venous blood specimen / Unknown 10/06/2025 10:43 AM EST 10/06/2025 1:08 PM EST Bhanu Reeder [facility] BLOOD ORDERABLES Final Re sult [facility] [address] [place] [phone] * (ABNORMAL) POCT Hgb A1c (10/06/2025 10:32 AM EST) Hemoglobin A1C 6.1(A) 4.0 - 5.7 % QC Media Lot # [id number] Lot# Expiration Date [id number] Blood 10/06/2025 10:3 2 AM EST Bhanu Reeder [facility] POINT OF CARE TEST ENTER/EDIT ORDERABLES Final Result * POCT Glucose (10/06/2025 10:31 AM EST) Pathologist [facility] Glucose Blood, POC 114 60 - 200 mg/dL Comment:random QC Media Lot # [id number] Lot# Expiration Date [id number] Blood Capillary blood specimen / Unknown 10/06/2025 10:31 AM EST Bhanu Reeder [facility] POINT OF CARE TEST ENTER/EDIT ORDERABLES Final Result from Last 3 Months Additional Health Concerns Active Problems Noted Date [...] 11/03/2025 Patient has chronic kidney disease 11/03/2025 Insurance [facility] STANDARD Care Teams Fingerprint Technician Relationship Specialty Start Date End Date Bhanu Reeder FNP [address] [place] [address] [phone] PCP - General Family Medicine 10/06/25
[2025-11-03 16:31] LABS: Iron 102 mcg/dL (30-160); Percent Iron Saturation 38 % (15-50); Total Iron Binding Capacity 267 mcg/dL (228-428); Unsaturated Iron Binding 165 ug/dL
== END 2025-11-03 11:44 | disposition home or self-care (01) ==
LOC: HO.HHCL 11:43
DX: D50.9 Iron deficiency anemia, unspecified (principal)
CPT/HCPCS: 36415; 83540